=== PATIENT | female | born 1965 | race Caucasian/White ===

== ENCOUNTER 2019-01-17 16:53 | Emergency (ER) | payer BC ==
[2019-01-17] MEDS: HYDROCODONE/APAP (10/325) TAB PO (20:57)
[2019-01-17] MEDS: LIDOCAINE 1% (MDV) 20 ML INJ SC (20:57)
[2019-01-17] MEDS: BACITRACIN 0.9 GM OINT TOP (22:11)
== END 2019-01-17 22:26 | disposition home or self-care (01) ==
LOC: FTE 16:53
DX: L02.411 Cutaneous abscess of right axilla (principal); J30.9 Allergic rhinitis, unspecified
CPT/HCPCS: 10060; 99283-25